=== PATIENT | female | born 1980 | race African-American/Black ===

== ENCOUNTER 2017-02-14 07:54 | Emergency (ER) | payer OTHER ==
[~2017-02-14] VITALS: Ht 167.6 cm; Wt 33.6 kg
[2017-02-14] MEDS ORDERED: TIZA4CAP3 PO (08:04)
[2017-02-14] MEDS ORDERED: IBUP-1022 PO (08:04)
[2017-02-14] MEDS ORDERED: ORTHTAB14 PO (08:04)
[2017-02-14 11:34] VITALS: BP 114/67
--- NOTE | 2017-02-14 11:56 | REP ---
LEFT HIP: Two views of the left hip were performed and demonstrate no fracture or dislocation. Multiple large egg shell type calcifications are seen overlying the pelvis. These could possibly represent calcified soft tissue granulomas in the superficial soft tissues, or calcified cysts or fibroids in the pelvis. Further evaluation may be made with CT exam if desired. Signed by Jeff Moise MD 02/14/2017 03:20 P
== END 2017-02-14 11:38 | disposition home or self-care (01) ==
LOC: M ED 07:54
DX: M54.42 Lumbago with sciatica, left side (principal); Z79.3 Long term (current) use of hormonal contraceptives; Z79.899 Other long term (current) drug therapy